=== PATIENT | female | born 1945 | race Caucasian/White ===

== ENCOUNTER 2021-02-02 18:06 | Emergency (ER) | payer MEDICARE, SELFPAY ==
--- NOTE | 2021-02-02 18:16 | ED.EYEPROB ---
HPI - Eye Problem General Chief complaint: Eye Problems Stated complaint: eye irritation Time Seen by Provider: 02/02/21 18:17 Source: patient and RN notes reviewed Mode of arrival: ambulatory Limitations: no limitations History of Present Illness HPI Narrative: 75-year-old female presents to the [facility] with complaints of left eye irritation for over 1 week. Noticed red conjunctive a. Denies any change in vision or blurry vision. No headaches. No drainage from her eye. Related Data Home Medications Medication Instructions Recorded Confirmed duloxetine 60 mg PO DAILY 02/02/21 02/02/21 hydrochlorothiazide 50 mg PO DAILY 02/02/21 02/02/21 levothyroxine 100 mcg PO DAILY 02/02/21 02/02/21 lisinopril 40 mg PO DAILY 02/02/21 02/02/21 simvastatin 20 mg PO HS 02/02/21 02/02/21 Allergies Allergy/AdvReac Type Severity Reaction Status Date / Time adhesive Allergy Mild Hives Verified 02/02/21 18:27 codeine Allergy Mild Hives Verified 02/02/21 18:27 Penicillins Allergy Mild Hives Verified 02/02/21 18:27 Review of Systems Review of Systems: All systems reviewed & are unremarkable except as noted in HPI and below Constitutional: Constitutional: Reports no additional constitutional complaints, Denies chills and Denies fever(s) Eyes: Eyes: Reports as per HPI, Denies change in vision and Denies photophobia ENT: Reports system reviewed and no additional complaints, except as documented Cardiovascular: Cardiovascular: Reports no additional cardiovascular complaints and Denies chest pain Respiratory: Respiratory: Reports no additional respiratory complaints, Denies cough and Denies dyspnea Musculoskeletal: Musculoskeletal: Reports no additional musculoskeletal complaints and Denies back pain Integumentary/Breasts: Skin/Breast: Reports system reviewed and no additional complaints, except as docu, Denies erythema and Denies rash Neurologic: Reports system reviewed and no additional complaints, except as documented Psychiatric: Psychiatric: Reports no additional psychiatric complaints Allergic/Immunologic: Allergic/Immunologic: Reports no additional allergic/immunologic complaints PMFSH Comments At the time of my signature, I reviewed and agree with the nursing past medical, surgical, social, and family history. There is no relevant family history pertinent to the patient complaint. Exam Const: General: healthy appearing, no acute distress and alert Nutritional Appearance: well nourished Orientation/consciousness: patient oriented x3 Limitations: no limitations HENMT: Head: normal to inspection Ears: hearing grossly normal bilaterally, external ears normal, TM's normal bilaterally and EAC's normal General nose exam: Normal external nose present and Normal nares present Face and sinus: normal facial exam and sinuses nontender Mouth: Yes Normal oral and palatal mucosa present and Yes lip normal Throat: posterior oropharynx normal, tonsils normal and uvula midline Eyes: Conjunctivae: conjunctival abnormality left conjunctival injection (Left) localized (Stye medial aspect) Pupils: Equal, round and reactive pupils present Neck: Neck: normal visual inspection, no lymphadenopathy and no meningeal signs Chest: Chest palpation & inspection: normal inspection of the chest Resp: Effort & Inspection: normal respiratory effort and no use of accessory muscles Auscultation: clear to auscultation bilaterally, no crackles, no rales, no rhonchi and no wheezes Cardio: Rate: regular rate Rhythm: regular rhythm : General: Yes no CVA tenderness Back/Spine/Pelvis: Back: no CVA tenderness Skin: General skin exam: normal color Rashes: no rashes Neuro: General: patient oriented x3, moves all extremities, no meningeal signs and no focal motor deficits Speech: normal speech Gait exam (Neuro): Normal gait present Extrem: General: normal to inspection and no pedal edema Psych: Appearance: grossly normal and well kempt Mental Status
[2021-02-02 18:17] VITALS: BP 127/75; PULSE 99; RESP 16; TEMP 36.1; O2SAT 96
== END 2021-02-02 18:33 | disposition home or self-care (01) ==
PROVIDERS: Emergency Provider Nurse Practitioner
DX: H00.016 Hordeolum externum left eye, unspecified eyelid (principal); E78.00 Pure hypercholesterolemia, unspecified; I10 Essential (primary) hypertension; J44.9 Chronic obstructive pulmonary disease, unspecified; K21.9 Gastro-esophageal reflux disease without esophagitis
CPT/HCPCS: 99203; G0463

== ENCOUNTER 2023-01-21 13:37 | Observation (INO) | payer OTHER, SELFPAY ==
--- NOTE | ~2023-01-21 | CT_ITS ---
EXAMINATION: CTA BRAIN/CAROTID DATE: 01/21/2023 16:12 INDICATION: Ataxia TECHNIQUE: Computed tomographic angiography (CTA) of the head and neck was performed with 100 mL Omni paque-350 intravenous contrast. Multiplanar reconstructions and maximum intensity projection 3D-recon structions of the carotid arteries and of the intracranial arteries were created by the technologist on a separate workstation. Precontrast CT of the head was also obtained. Automated exposure control and iterative reconstruction technique were employed.The dose-length product was 1647.57 mGy-cm. COMPARISON: CT dated 07/08/2013 and MRI dated 10/15/2007 FINDINGS: Carotid arteries: Nonhemodynamically significant atherosclerotic plaque along the aortic arch which is normal in calibe r with no dissection. There is small amount of atherosclerotic plaque with 0% stenosis both the right and left carotid bulbs relative to normal distal artery lumen diameter (NASCET criteria). Severe emp hysema. Severe cervical and upper thoracic spondylosis. Head: No significant change in small old lacunar infarcts at the bilateral basal ganglia and left odalys. No acute intracranial hemorrhage, acute infarction or abnormal extra axial fluid collection. There is mo derate scattered white matter hypoattenuation consistent with chronic small vessel ischemic disease. Symmetric prominence of the sulci consistent with mild age-appropriate diffuse cerebral volume loss. Ventricles are normal and symmetric. No mass/mass effect. No abnormally enhancing brain lesions on po stcontrast imaging. The orbits, paranasal sinuses and mastoid air cells are normal. Intracranial arteries Small amount of atherosclerotic plaque without hemodynamic significant stenosis at the bilateral vert ebral arteries and at the bilateral carotid siphons. There is no hemodynamically significant stenosis in the vertebral, basilar and internal carotid arteries. Vertebral arteries are codominant. There ar e no aneurysms identified. Both A1 and P1 segments are patent. There is a patent anterior communicat ing artery. Cerebral arterial arborization appears symmetric. IMPRESSION: 1. 0% stenosis of the right and left carotid bulbs relative to normal distal artery lumen diameter (N ASCET criteria). 2. No hemodynamic significant stenosis, thrombosis or aneurysm of the cerebral arteries. 3. Chronic old lacunar infarcts at the bilateral basal ganglia and left odalys. No acute intracranial p rocess or abnormally enhancing brain lesions. 4. Age-related changes including mild diffuse volume loss and moderate scattered white matter hypoatt enuation consistent with chronic small vessel ischemic disease. Reviewed, dictated and finalized at location A. IMPRESSION: 1. 0% stenosis of the right and left carotid bulbs relative to normal distal ar selam lumen diameter (NASCET criteria). 2. No hemodynamic significant stenosis, thrombosis or aneurysm of the cerebral arteries. 3. Chronic old lacunar infarcts at the bilateral basal ganglia and left odalys. N o acute intracranial process or abnormally enhancing brain lesions. 4. Age-related changes including mild diffuse volume loss and moderate scattere d white matter hypoattenuation consistent with chronic small vessel ischemic di sease.
--- NOTE | ~2023-01-21 | XR_ITS ---
XR chest 1V portable 01/21/2023 16:28 Indication: Generalized weakness Procedure: AP portable chest Comparison: 04/27/2008 Findings: Bilateral perihilar interstitial infiltrates. Heart size normal. No pleural effusion or pne umothorax. No acute osseous abnormality. Impression: 1: Bilateral perihilar interstitial infiltrates may represent pneumonia or edema. Reviewed, dictated and finalized at location L. Impression: 1: Bilateral perihilar interstitial infiltrates may represent pneumonia or artie a.
[2023-01-21 13:39] VITALS: BP 106/45; PULSE 95; RESP 18; TEMP 36.9; O2SAT 98
[2023-01-21 13:59] LABS: Basophils Percent Auto 0.6 % (0.2-1.2); Eosinophils Absolute Auto 0.1 K/mm3 (0-0.3); Eosinophils Percent Auto 0.8 % (0-4.4); Hematocrit 37.8 % (37.0-47.0); Hemoglobin 12.6 g/dL (12.0-15.0); Immature Granulocyte Absolute 0.04 K/mm3 (0.00-0.031); Immature Granulocyte Percent A 0.6 % (0-0.5); Lymphocytes Absolute Auto 1.23 K/mm3 (0.9-3.2); Lymphocytes Percent Auto 18.9 % (18.3-44.2); Mean Corpuscular HGB Conc 33.3 g/dl (32-36); Mean Corpuscular Hemoglobin 29.7 pg (26-34); Mean Corpuscular Volume 89.2 fl (80-100); Monocytes Absolute Auto 0.5 K/mm3 (0.1-0.6); Monocytes Percent Auto 6.9 % (2.6-8.5); Neutrophils Absolute Auto 4.7 K/mm3 (1.3-6.7); Neutrophils Percent Auto 72.2 % (45.5-73.1); Platelet Count Result 219 k/mm3 (150-375); Red Blood Count 4.24 M/mm3 (4.2-5.4); Red Cell Distribution Width 14.9 % (11.5-14.5); White Blood Count 6.5 K/mm3 (4.5-10.0)
[2023-01-21 14:12] LABS: Alanine Aminotransferase 39 U/L (6-35); Albumin Level 4.5 g/dL (3.5-5.1); Alkaline Phosphatase 82 U/L (38-126); Anion Gap 12 mmol/L (8-16); Aspartate Amino Transferase 69 U/L (14-36); Bilirubin,Total 1.2 mg/dL (0.2-1.3); Blood Urea Nitrogen 20 mg/dL (7-17); Calcium 8.6 mg/dL (8.4-10.2); Carbon Dioxide 26 mmol/L (22-30); Chloride 92 mmol/L (98-107); Estimated CRCL calculation 35 ml/min; Estimated Glomerular Filt Rate 44; Glucose 93 mg/dL (65-110); Potassium 3.1 mmol/L (3.4-5.0); Sodium 130 mmol/L (137-145)
[2023-01-21 14:57] LABS: Appearance Urine Cloudy (Clear); Bacteria Urine 4+ /hpf; Bilirubin Urine Negative (Negative); Blood Urine 1+ (Negative); Color Urine Dark Yellow (Yellow); Glucose Urine UA Negative (Negative); Ketones Urine Negative (Negative); Leukocyte Esterase Ur Negative LEU/UL (Negative); Nitrate Urine Negative (Negative); Non Pathogenic Casts 0-2; Protein Urine 1+ mg/dL (Negative); Specific Grav Ur 1.013 (1.001-1.035); Squamous Epithelial Cell Urine Occasional /hpf (Few); WBC Urine 0-5 /hpf
[2023-01-21 15:00] LABS: Add Urine Microscopic? YES
--- NOTE | 2023-01-21 15:43 | ECG_ITS ---
Measurements Intervals [place] Rate: 80 P: 52 CO: 178 QRS: -18 QRSD: 88 T: 41 QT: 398 QTc: 461 Interpretive Statements SINUS RHYTHM LOW QRS VOLTAGE IN PRECORDIAL LEADS [QRS DEFLECTION < 1.0 mV IN CHEST LEADS] MINIMAL VOLTAGE CRITERIA FOR LVH, CONSIDER NORMAL VARIANT [MEETS CRITERIA IN ONE OF: R(aVL), S(V1), R(V5), R(V5/V6)+S(V1)] INFERIOR MYOCARDIAL INFARCTION , PROBABLY OLD [40+ ms Q WAVE AND/OR ST/T ABNORMALITY IN II/aVF] NO PREVIOUS ECG AVAILABLE FOR COMPARISON Electronically Signed On 01-21-2023 16:26:48 CDT by Lacey Roe M.D.
[2023-01-21] MEDS: SODIUM CHLORIDE 0.9% IV 1,000 ML 999 ML IV CONT (15:59)
[2023-01-21] MEDS: ONDANSETRON INJ 4 MG/2 ML VIAL IV PUSH (16:00)
[2023-01-21] MEDS: ACETAMINOPHEN 325 MG TABLET 650 MG PO (16:00)
--- NOTE | 2023-01-21 16:01 | PC.NURSE ---
Pt to CT scan via stretcher at this time. Fluids infusing.
[2023-01-21 16:19] LABS: Lipase 55 U/L (23-300); Magnesium 2.2 mg/dL (1.6-2.3); Phosphorus 3.8 mg/dL (2.5-4.5)
[2023-01-21 16:20] LABS: Creatine Kinase 158 U/L (30-135)
[2023-01-21 16:30] LABS: Troponin I < 0.012 ng/mL (0.000-0.034)
--- NOTE | 2023-01-21 16:49 | ED.BACK ---
HPI - Back Pain/Injury General Chief Complaint: Back Pain/Injury <Linh Beatty PA-C - Last Filed: 01/21/23 18:37> Stated Complaint: kidney infection sx <Linh Beatty PA-C - Last Filed: 01/21/23 18:37> Time Seen by Provider: 01/21/23 14:58 <Linh Beatty PA-C - Last Filed: 01/21/23 18:37> History of Present Illness HPI Narrative: 77-year-old female with a history of COPD, hysterectomy, thyroidectomy, back surgeries in 1965 in 2019 reports for evaluation for generalized weakness, body aches, headaches, muscle spasms, nausea and ataxia x1 week. Patient states starting 1 week ago, symptoms began however over the weekend, they progressively worsened and she did not get out of bed for 2 days. Patient reports having a 102 fever 3 days ago with associated hot and cold flashes. She does endorse a persistent nonproductive cough secondary to her COPD, however states it has worsened since December. Patient also endorses a dyspnea that is unchanged from her baseline. Denies chest pain. Patient is complaining of a tension type headache over her temples, denies vision changes, focal numbness or weakness. She really denies dysuria, urinary frequency, however she does report urinary urgency at baseline and states that recently her urine has looked darker than normal. She reports back pain that is unchanged from her baseline. Patient reports she has felt off balance recently. States if she were to sit down on the toilet, and lean forward, she would fall off the toilet. Reports she has to hold onto the wall while ambulating which is abnormal for her and she is unable to ambulate without holding onto a wall. Denies abdominal pain, chest pain, diarrhea, vomiting, lower extremity edema, history of CHF. <Linh Beatty PA-C - Last Filed: 01/21/23 18:37> Related Data Home Medications: Home Medications Medication Instructions Recorded Confirmed duloxetine 60 mg capsule,delayed 60 mg PO DAILY 02/02/21 01/21/23 release hydrochlorothiazide 50 mg tablet 50 mg PO DAILY 02/02/21 01/21/23 levothyroxine 100 mcg tablet 112 mcg PO DAILY 07/02/21 06/20/23 lisinopril 40 mg tablet 40 mg PO DAILY 02/02/21 01/21/23 simvastatin 20 mg tablet 20 mg PO HS 02/02/21 01/21/23 buspirone 15 mg tablet 15 mg PO QAM 01/21/23 01/21/23 colesevelam 625 mg tablet 312.5 mg PO BID 01/21/23 01/21/23 omeprazole 40 mg capsule,delayed 40 mg PO DAILY 01/21/23 01/21/23 release <Linh Beatty PA-C - Last Filed: 01/21/23 18:37> Allergies/Adverse Reactions: Allergies Allergy/AdvReac Type Severity Reaction Status Date / Time adhesive Allergy Mild Hives Verified 01/21/23 14:55 codeine Allergy Mild Hives Verified 01/21/23 14:55 Penicillins Allergy Mild Hives Verified 02/02/21 18:27 <ARNULFO Novak Last Filed: 01/21/23 18:37> Review of Systems Review of Systems: CONSTITUTIONAL: See HPI EYES: Denies visual changes, redness, or discharge. ENT: Denies rhinorrhea, congestion, sore throat, or otalgia. CARDIOVASCULAR: Denies chest pain, palpitations, or edema. RESPIRATORY: See HPI GASTROINTESTINAL: Denies abdominal pain, vomiting, or diarrhea. GENITOURINARY: See HPI SKIN: Denies rash or itching. MUSCULOSKELETAL: See HPI NEUROLOGIC: See HPI PSYCHIATRIC: Denies anxiety or depression. <ARNULFO Novak Last Filed: 01/21/23 18:37> [facility] Past Medical History Medical History: Medical History (Updated 01/22/23 @ 01:51 by Vandana Bills NP) CVA (cerebral vascular accident) Depression ect shock therapy Hypertension Hypothyroidism JAYANT on CPAP <ARNULFO Novak Last Filed: 01/21/23 18:37> Surgical History Surgical History: Surgical History (Updated 01/22/23 @ 01:26 by Vandana Bills NP) H/O cataract extraction H/O section H/O thyroidectomy H/O: hysterectomy Hx of cholecystectomy <ARNULFO Novak Last Filed: 01/21/23 18:37> Family History Family Histor
[2023-01-21] MEDS: POTASSIUM CHLORIDE 20 MEQ PACKET (FOR LIQUID) 40 MEQ PO (16:51)
[2023-01-21 16:53] VITALS: BP 108/50; PULSE 80; RESP 17; O2SAT 100
[2023-01-21 16:57] LABS: Influenza A QL RT-PCR Negative (Negative); Influenza B QL RT-PCR Negative (Negative); SARS-CoV-2 RNA PCR Negative (Negative)
[2023-01-21 17:43] LABS: NT Pro B Type Natriuretic Pept 243 pg/mL (19.9-100)
[2023-01-21 17:44] VITALS: BP 115/52; PULSE 78; RESP 16; TEMP 36.8; O2SAT 91
[2023-01-21] MEDS: AZITHROMYCIN 500 MG/NS 250 ML 500 MG/250 ML BAG 250 MG IVPB (18:50)
--- NOTE | 2023-01-21 20:52 | ADMGEN ---
This patient, Ileana Panda, was admitted to Medical Room 347-. Patient/family oriented to hospital policies and general routines including ID bracelet, bed and alarms, visiting hours, pain management, procedures, bathroom and other care routines, personal items, smoking policy, room service/diet, and visiting hours. Information on how to activate the Rapid Response Team has been discussed. Patient/Family are encouraged to report perceived risks to care and to ask questions if they do not understand what they are told or what they should do.
[2023-01-21 21:28] VITALS: BP 107/48; PULSE 76; RESP 18; TEMP 37.2; O2SAT 100
[2023-01-21 21:30] VITALS: BMI 29.0
--- NOTE | 2023-01-21 21:46 | PM.IMHP ---
H&P: HPI History of Present Illness Date/Time: 01/21/23 21:46 Chief Complaint: Back pain Narrative: This is a 77-year-old female patient who has a history of hypertension and depression. The patient has had chronic back pain with back surgeries and 1966 and again in 2019. The patient stated that she has had weakness for the last week with generalized weakness body aches headaches and muscle spasms. The patient has been feeling worse over the last 2 days and has been bed-bound. The patient reported that she had a fever of 102 for 3 days with hot and cold flashes. The patient has been complaining of a headache over her temp oral area today. The patient has chronic urinary urgency at baseline. However the patient felt that her urine was darker than normal. The patient was feeling off balance but not dizzy. Her sodium is 130. Potassium 3.1 chloride 92. Creatinine 1.2. Estimated GFR is 44. No recent labs for comparison. Her total CK was 158. AST 69 ALT 39. BNP 243. The patient was positive for UTI. She was negative for influenza A/B and COVID. The patient was given Zofran, Tylenol, IV fluids, Rocephin and azithromycin. Head and neck CTA was read as follows0% stenosis of the right and left carotid bulbs relative to normal distal artery lumen diameter (NASCET criteria). 2. No hemodynamic significant stenosis, thrombosis or aneurysm of the cerebral arteries. 3. Chronic old lacunar infarcts at the bilateral basal ganglia and left odalys. No acute intracranial process or abnormally enhancing brain lesions. 4. Age-related changes including mild diffuse volume loss and moderate scattered white matter hypoattenuation consistent with chronic small vessel ischemic disease. Chest x-ray was read as bilateral perihilar interstitial infiltrates may represent pneumonia or edema. The patient is being admitted to observation status on the date of service of 01/21/2023. Review of Systems Review of Systems: All systems reviewed & are unremarkable except as noted in HPI and below Constitutional: Constitutional: Reports as per HPI and Reports no additional constitutional complaints Eyes: Eyes: Reports as per HPI and Reports no additional eye complaints ENT: Reports system reviewed and no additional complaints, except as documented and Reports Normal hearing present Cardiovascular: Cardiovascular: Reports no additional cardiovascular complaints Respiratory: Respiratory: Reports no additional respiratory complaints and Reports no additional respiratory complaints Gastrointestinal: Gastrointestinal: Reports as per HPI and Reports no additional gastrointestinal complaints Musculoskeletal: Musculoskeletal: Reports no additional musculoskeletal complaints Integumentary/Breasts: Skin/Breast: Reports system reviewed and no additional complaints, except as docu and Reports as per HPI Neurologic: Reports system reviewed and no additional complaints, except as documented, Reports as per HPI and Reports Normal hearing present Psychiatric: Psychiatric: Reports no additional psychiatric complaints and Reports as per HPI Endocrine: Endocrine: Reports no additional endocrine complaints Hematologic/Lymphatic: Hematologic/Lymphatic: Reports no additional hematologic/lymphatic complaints Allergic/Immunologic: Allergic/Immunologic: Reports no additional allergic/immunologic complaints [facility] Past Medical History Medical History (Updated 01/22/23 @ 01:51 by Vandana Bills NP) CVA (cerebral vascular accident) Depression ect shock therapy Hypertension Hypothyroidism JAYANT on CPAP Surgical History Surgical History (Updated 01/22/23 @ 01:26 by Vandana Bills NP) H/O cataract extraction H/O section H/O thyroidectomy H/O: hysterectomy Hx of cholecystectomy Family History Family History Father Acute myocardial infarction Asthma Hypertension Sibling Acute myocardial infarction Cerebro
[2023-01-21] MEDS: COLESEVELAM 625 MG TABLET 312.5 MG PO (23:54)
[2023-01-21] MEDS: SIMVASTATIN 20 MG TABLET PO (23:54)
[2023-01-22] MEDS: LEVOTHYROXINE SODIUM 112 MCG TABLET PO (05:07)
[2023-01-22 05:14] VITALS: BP 110/55; PULSE 78; RESP 18; TEMP 36.9; O2SAT 94
[2023-01-22 06:02] LABS: Basophils Percent Auto 0.9 % (0.2-1.2); Eosinophils Percent Auto 0.9 % (0-4.4); Hematocrit 31.7 % (37.0-47.0); Hemoglobin 10.5 g/dL (12.0-15.0); Immature Granulocyte Absolute 0.02 K/mm3 (0.00-0.031); Immature Granulocyte Percent A 0.5 % (0-0.5); Lymphocytes Absolute Auto 1.06 K/mm3 (0.9-3.2); Mean Corpuscular HGB Conc 33.1 g/dl (32-36); Mean Corpuscular Hemoglobin 29.5 pg (26-34); Mean Platelet Volume 9.9 fl (7.4-10.4); Monocytes Absolute Auto 0.4 K/mm3 (0.1-0.6); Monocytes Percent Auto 9.5 % (2.6-8.5); Neutrophils Absolute Auto 2.8 K/mm3 (1.3-6.7); Neutrophils Percent Auto 64.2 % (45.5-73.1); Platelet Count Result 183 k/mm3 (150-375); Red Blood Count 3.56 M/mm3 (4.2-5.4); Red Cell Distribution Width 14.8 % (11.5-14.5); White Blood Count 4.4 K/mm3 (4.5-10.0)
[2023-01-22 06:11] LABS: Lactic Acid Reflex 0.8 mmol/L (0.7-2.0)
[2023-01-22 06:12] LABS: Alanine Aminotransferase 32 U/L (6-35); Albumin Level 3.3 g/dL (3.5-5.1); Alkaline Phosphatase 70 U/L (38-126); Anion Gap 7 mmol/L (8-16); Aspartate Amino Transferase 50 U/L (14-36); Bilirubin,Total 0.7 mg/dL (0.2-1.3); Blood Urea Nitrogen 15 mg/dL (7-17); Calcium 7.9 mg/dL (8.4-10.2); Carbon Dioxide 27 mmol/L (22-30); Chloride 98 mmol/L (98-107); Estimated CRCL calculation 40 ml/min; Estimated Glomerular Filt Rate 54; Glucose 88 mg/dL (65-110); Potassium 3.4 mmol/L (3.4-5.0); Sodium 132 mmol/L (137-145)
[2023-01-22 06:32] LABS: Anisocytosis 1+ (NORMAL); Atypical Lymphocytes Present; Platelet Estimate Adequate (Adequate); Schistocytes None Seen (NORMAL)
[2023-01-22] MEDS: lisinopriL 20 MG TABLET 40 MG PO (09:19)
[2023-01-22] MEDS: DULoxetine HCL 60 MG CAPSULE.DR PO (09:20)
[2023-01-22] MEDS: PANTOPRAZOLE 40 MG TABLET PO (09:20)
[2023-01-22] MEDS: COLESEVELAM 625 MG TABLET 312.5 MG PO ×2 (09:20→17:24)
[2023-01-22] MEDS: busPIRone HCL 5 MG TABLET 15 MG PO (09:20)
--- NOTE | 2023-01-22 11:51 | PM.IMPN ---
Progress Note: A&P Assessment and Plan (1) Pneumonia: Qualifiers: Laterality: bilateral Lung location: unspecified part of lung Pneumonia type: due to unspecified organism Qualified Code(s): J18.9 - Pneumonia, unspecified organism Code(s): J18.9 - Pneumonia, unspecified organism Status: Acute Assessment and Plan: Patient presents with myalgias, achiness and back pain. Influenza and COVID negative. UA noted but did not prompt a culture. BCx pending. UCx collected later. CXR showing bilateral perihilar interstitial infiltrates. Sputum culture ordered. Check urine Ag. Albuterol available prn. Continue with azithromycin and Rocephin per antibiotic stewardship. Follow up on culture results. Broaden differential if she delgadillo not improve as expected. (2) Hypertension: Code(s): I10 - Essential (primary) hypertension Status: Acute Assessment and Plan: Patient's blood pressure was reviewed on 01/22 Blood pressure remains well controlled. Will continue to monitor. Continue to hold hydrochlorothiazide (3) UTI (urinary tract infection): Code(s): N39.0 - Urinary tract infection, site not specified Status: Acute Assessment and Plan: UA noted. The patient was started on Rocephin. Urine culture was collected late. Blood and urine cultures are pending. (4) Generalized weakness: Code(s): R53.1 - Weakness Status: Acute Assessment and Plan: Patient was achy with myalgias. TCK 158. Up to the chair. Start PT/OT. (5) JAYANT on CPAP: Code(s): G47.33 - Obstructive sleep apnea (adult) (pediatric) Status: Acute Assessment and Plan: Stable. Continue with CPAP/BiPAP (6) Depression: Code(s): F32.A - Depression, unspecified Status: Acute Assessment and Plan: Mood stable. Continue with duloxetine (7) Hypothyroidism: Code(s): E03.9 - Hypothyroidism, unspecified Status: Acute Assessment and Plan: TSH normal. Continue with levothyroxine Subjective Date/time seen: 01/22/23 11:51 Interval history: 77yo female with HTN and depression here for weakness, fever and back pain. Assuming care. Chart reviewed. back pain is better. She states the pain was higher than her hardware in her low back. Eating now without nausea. Still feels achy. Minimal cough Exam Narrative: AF 98.4 110/55 78 18 94% ra Gen - NARD sitting up in chair Chest - CTA bilaterally, nml RR CV - RRR S1/S2 Abd - Soft, NT/ND, Positive BS Ext - No pedal edema Psych - Nml mood and affect Skin - Warm and dry Objective Data Vital Signs Vital Signs: Vital Signs - 24 hr 01/21/23 13:39 01/21/23 16:53 01/21/23 17:44 Temperature 98.5 F 98.2 F Pulse Rate 95 80 78 Respiratory Rate 18 17 16 Blood Pressure 106/45 L 108/50 L 115/52 L Pulse Oximetry 98 100 91 Oxygen Delivery Room Air 01/21/23 21:06 01/21/23 21:28 01/22/23 05:14 Temperature 99 F 98.4 F Pulse Rate 76 78 Respiratory Rate 18 18 Blood Pressure 107/48 L 110/55 L Pulse Oximetry 100 94 Oxygen Delivery Room Air 01/22/23 09:15 Temperature Pulse Rate Respiratory Rate Blood Pressure Pulse Oximetry Oxygen Delivery Room Air Intake/Output Intake/Output: Intake & Output 01/19/23 01/20/23 01/21/23 01/22/23 23:59 23:59 23:59 23:59 Intake Total 1300 420 Balance 1300 420 Meds/Results Medications: Active Medications Generic Name Dose Route Start Last Admin Trade Name Freq PRN Reason Stop Dose Admin Acetaminophen 650 mg 01/21/23 17:35 Acetaminophen 325 Mg Tablet PO Q4H PRN Mild Pain (1-3) or Fever Albuterol 2 puff 01/22/23 01:32 Albuterol Sulfate (*Sp) Aerosol 1 Puff INHALATION Q6HRT PRN Shortness Of Breath Buspirone HCl 15 mg 01/22/23 09:00 01/22/23 09:20 Buspirone Hcl 5 Mg Tablet PO 15 mg QAM JIHAN Administration Colesevelam HCl 312.5 mg 01/21/23 23:05
--- NOTE | 2023-01-22 13:36 | PCCCNOTE ---
On 01/22/23, the student, [Liz Manning], provided care and completed [facility] documentation on this patient. I have reviewed the student's documentation and agree with the findings.
[2023-01-22 13:59] VITALS: BP 106/64; PULSE 71; RESP 16; TEMP 36.1; O2SAT 97
[2023-01-22] MEDS: ACETAMINOPHEN 325 MG TABLET 650 MG PO (17:23)
[2023-01-22] MEDS: AZITHROMYCIN 500 MG/NS 250 ML 500 MG/250 ML BAG 250 MG IVPB (19:26)
[2023-01-22] MEDS: SIMVASTATIN 20 MG TABLET PO (20:35)
[2023-01-22 21:17] VITALS: BP 106/46; PULSE 71; RESP 18; TEMP 36.7; O2SAT 95
[2023-01-22 22:50] VITALS: PULSE 70; O2SAT 95
[2023-01-23 04:47] VITALS: BP 109/49; PULSE 74; RESP 20; TEMP 36.4; O2SAT 94
[2023-01-23] MEDS: LEVOTHYROXINE SODIUM 112 MCG TABLET PO (05:29)
[2023-01-23 06:01] LABS: Basophils Percent Auto 0.7 % (0.2-1.2); Eosinophils Absolute Auto 0.1 K/mm3 (0-0.3); Eosinophils Percent Auto 2.4 % (0-4.4); Hematocrit 31.3 % (37.0-47.0); Hemoglobin 10.3 g/dL (12.0-15.0); Immature Granulocyte Absolute 0.03 K/mm3 (0.00-0.031); Immature Granulocyte Percent A 0.7 % (0-0.5); Lymphocytes Absolute Auto 1.63 K/mm3 (0.9-3.2); Mean Corpuscular HGB Conc 32.9 g/dl (32-36); Mean Corpuscular Hemoglobin 29.3 pg (26-34); Mean Corpuscular Volume 89.2 fl (80-100); Mean Platelet Volume 9.9 fl (7.4-10.4); Monocytes Absolute Auto 0.4 K/mm3 (0.1-0.6); Monocytes Percent Auto 9.6 % (2.6-8.5); Neutrophils Percent Auto 47.6 % (45.5-73.1); Platelet Count Result 178 k/mm3 (150-375); Red Blood Count 3.51 M/mm3 (4.2-5.4); Red Cell Distribution Width 14.8 % (11.5-14.5); White Blood Count 4.2 K/mm3 (4.5-10.0)
[2023-01-23 06:16] LABS: Alanine Aminotransferase 34 U/L (6-35); Albumin Level 3.3 g/dL (3.5-5.1); Alkaline Phosphatase 67 U/L (38-126); Anion Gap 7 mmol/L (8-16); Aspartate Amino Transferase 57 U/L (14-36); Bilirubin,Total 0.4 mg/dL (0.2-1.3); Blood Urea Nitrogen 13 mg/dL (7-17); Calcium 8.2 mg/dL (8.4-10.2); Carbon Dioxide 27 mmol/L (22-30); Chloride 103 mmol/L (98-107); Creatine Kinase 67 U/L (30-135); Estimated CRCL calculation 44 ml/min; Estimated Glomerular Filt Rate > 60; Glucose 98 mg/dL (65-110); Magnesium 1.9 mg/dL (1.6-2.3); Potassium 3.6 mmol/L (3.4-5.0); Sodium 137 mmol/L (137-145)
[2023-01-23] MEDS: lisinopriL 20 MG TABLET 40 MG PO (08:58)
[2023-01-23] MEDS: COLESEVELAM 625 MG TABLET 312.5 MG PO (08:58)
[2023-01-23] MEDS: busPIRone HCL 5 MG TABLET 15 MG PO (08:58)
[2023-01-23] MEDS: DULoxetine HCL 60 MG CAPSULE.DR PO (08:58)
[2023-01-23] MEDS: PANTOPRAZOLE 40 MG TABLET PO (08:58)
--- NOTE | 2023-01-23 12:47 | PM.DS ---
DS: Admitting Diagnosis Discharge Date 01/23/23 Admitting Diagnosis Weakness, fever and back pain DS: Discharge Diagnosis Discharge Diagnosis (1) Pneumonia: Qualifiers: Laterality: bilateral Lung location: unspecified part of lung Pneumonia type: due to unspecified organism Qualified Code(s): J18.9 - Pneumonia, unspecified organism Code(s): J18.9 - Pneumonia, unspecified organism Status: Acute (2) Hypertension: Code(s): I10 - Essential (primary) hypertension Status: Acute (3) UTI (urinary tract infection): Code(s): N39.0 - Urinary tract infection, site not specified Status: Acute (4) Generalized weakness: Code(s): R53.1 - Weakness Status: Acute (5) JAYANT on CPAP: Code(s): G47.33 - Obstructive sleep apnea (adult) (pediatric) Status: Acute (6) Depression: Code(s): F32.A - Depression, unspecified Status: Acute (7) Hypothyroidism: Code(s): E03.9 - Hypothyroidism, unspecified Status: Acute DS: Summary Hospital Course Reason for hospitalization: 77yo female with HTN and depression here for weakness, fever and back pain. Please see H&P for details. Hospital Course: Patient presented with myalgias, achiness and back pain. Influenza and COVID negative. UA noted but did not prompt a culture. BCx NGTD. UCx collected later and is pending. CXR showing bilateral perihilar interstitial infiltrates. Sputum culture ordered but not collected. Urine Ag pending. Albuterol was available prn. She was started on azithromycin and Rocephin per antibiotic stewardship. She has HTN and her blood pressure remained well controlled.?We held hydrochlorothiazide. Patient was achy with myalgias. TCK 158. She worked with PT/OT. Dhe refuses home health but is agreeable for outpatient therapy. She lives with her son. She had clinical improvement and was able to be discharged home on 01/23/23. Status at Discharge Cognitive/behavioral status at discharge: stable Time Spent with Patient Time attestation: Total time spent providing and/or coordinating discharge services: 34 minutes Time spent: Greater than 30 minutes Exam Narrative: AF 97.5 109/49 74 20 94% ra Gen - NARD Chest - few bibasilar crackles, nml RR CV - RRR S1/S2 Abd - Soft, NT/ND, Positive BS Ext - No pedal edema Psych - Nml mood and affect Skin - Warm and dry DS: Data Data Completed and Pending Labs on day of discharge: Labs from last 24 hours 01/23/23 01/22/23 05:50 15:50 WBC 4.2 L RBC 3.51 L Hgb 10.3 L Hct 31.3 L MCV 89.2 MCH 29.3 MCHC 32.9 RDW 14.8 H Plt Count 178 MPV 9.9 Immature Gran % (Auto) 0.7 H Neut % (Auto) 47.6 Lymph % (Auto) 39.0 [place] % (Auto) 9.6 H Eos % (Auto) 2.4 Baso % (Auto) 0.7 Lymph # (Auto) 1.63 [place] # (Auto) 0.4 Eos # (Auto) 0.1 Baso # (Auto) 0.0 Abs Immat Gran (auto) 0.03 Absolute Neuts (auto) 2.0 Absolute Nucleated RBC 0.0 Nucleated RBC % 0.0 Sodium 137 Potassium 3.6 Chloride 103 Carbon Dioxide 27 Anion Gap 7 L BUN 13 Creatinine 0.90 Estim Creat Clear Calc 44 Estimated GFR > 60 Glucose 98 Calcium 8.2 L Magnesium 1.9 Total Bilirubin 0.4 AST 57 H ALT 34 Alkaline Phosphatase 67 Total Creatine Kinase 67 Total Protein 6.0 L Albumin 3.3 L Ur L.pneumophila Ag Pending Urine Pneumococcal Ag Pending Preliminary micro results at discharge 01/22/23 02:16 Blood Culture - Preliminary Blood 01/22/23 02:16 Blood Culture - Preliminary Blood Discharge Plan Discharge Attending physician on discharge: Frederick Hall Consulting providers: Linh Beatty Discharging Clinician: Frederick Hall Anticipated Discharge Date/Time: 01/23/23 12:52 Patient Disposition: Home, Self-Care Activity: as tolerated Diet: heart healthy Discharge Instructions: please take these discharge orders to outpa
[2023-01-23] MEDS: ACETAMINOPHEN 325 MG TABLET 650 MG PO (13:25)
[2023-01-25 02:04] LABS: Pneumococcal Antigen Urine Not Detected (Not Detected)
[2023-01-25 10:07] LABS: Legionella pneumophila Ag Ur Not Detected (Not Detected)
--- NOTE | 2023-01-28 10:24 | PC.NURSE ---
Urine pneumococcal and legionella are both not detected. Blood and urine cx are both negative. Dr. Rafael lino.
== END 2023-01-23 14:03 | disposition home or self-care (01) ==
LOC: ANHED 17:35 → ANH3MED 01-22 09:20
PROVIDERS: Emergency Medicine; Nurse Practitioner; Admitting Provider Chiropractor; Emergency Provider Physician Assistant; PCP Family Medicine Sports Medicine; Visit Provider Internal Medicine
DX: J18.9 Pneumonia, unspecified organism (principal); I10 Essential (primary) hypertension; N39.0 Urinary tract infection, site not specified; R53.1 Weakness; G47.33 Obstructive sleep apnea (adult) (pediatric); F32.A Depression, unspecified; E03.9 Hypothyroidism, unspecified; E87.1 Hypo-osmolality and hyponatremia; E87.6 Hypokalemia; M79.10 Myalgia, unspecified site; Z20.822 Contact with and (suspected) exposure to COVID-19; R51.9 Headache, unspecified; R11.0 Nausea; R27.0 Ataxia, unspecified; R94.31 Abnormal electrocardiogram [ECG] [EKG]; R27.8 Other lack of coordination; R50.9 Fever, unspecified; J44.9 Chronic obstructive pulmonary disease, unspecified; R91.8 Other nonspecific abnormal finding of lung field; Z90.710 Acquired absence of both cervix and uterus; Z98.890 Other specified postprocedural states; Z99.89 Dependence on other enabling machines and devices; R06.00 Dyspnea, unspecified; R39.15 Urgency of urination; Z86.73 Personal history of transient ischemic attack (TIA), and cerebral infarction without residual deficits; Z87.891 Personal history of nicotine dependence; Z79.899 Other long term (current) drug therapy
CPT/HCPCS: 36415; 70496; 70498; 71045; 80053; 81001; 82550; 83605; 83690; 83735; 83880; 84100; 84443; 84484; 85025; 87040; 87086; 87449; 87636; 87899; 93005; 96361; 96365; 96366; 96367; 96375; 96376; 97161; 97165; 99285; A9270; G0378; J0456; J0696; J2405; J7030; Q9967

== ENCOUNTER 2024-03-01 09:49 | Outpatient (CLI) | payer OTHER, SELFPAY ==
--- NOTE | ~2024-03-01 | XR_ITS ---
XR abdomen/kub 1V Ordering provider: Danyell Hernandez, DRILLING INSPECTOR History: . bilateral renal stones . Comparison: None. FINDINGS: BOWEL: Nonobstructive bowel gas pattern. ORGANOMEGALY: None. SIGNIFICANT PATHOLOGIC CALCIFICATIONS: None. OTHER: Postoperative changes in the spine with degenerative changes. Pubic symphysitis. Bilateral hip osteoarthritic changes. No free air is seen under the diaphragm. IMPRESSION: NO ACUTE ABDOMINAL FINDINGS. Reviewed, dictated and finalized at location A.
--- NOTE | ~2024-03-01 | CT_ITS ---
Non-contrast CT scan of the Abdomen and Pelvis Clinical indication: Renal stones Technique: 2.5 mm axial scans were obtained through the abdomen and pelvis without intravenous or or al contrast. Dose reduction technique was used on this scan by utilizing automated exposure control a nd iterative reconstruction technique. The dose-length product (DLP) was 752.65 mGy-cm. Findings: Images through the lung bases reveal moderate emphysema. There is no evidence of renal or ureteral calculi. The kidneys and the ureters are nondilated. The liver, spleen, pancreas, and left adrenal gland appear normal. Gallbladder absent. 1.5 cm right a drenal nodule present. There are atherosclerotic calcifications of the aorta. . There is no evidence of bowel obstruction. Images through the pelvis were performed. There is no evidence of ascites or lymphadenopathy. Urinary bladder unremarkable. No pelvic mass seen. Impression: Renal, ureteral, or bladder stone seen. No hydronephrosis. 1.5 cm right adrenal nodule, strictly speaking indeterminate, though likely adenoma. Reviewed, dictated and finalized at [facility]. Impression: Renal, ureteral, or bladder stone seen. No hydronephrosis. 1.5 cm right adrenal nodule, strictly speaking indeterminate, though likely jaswinder noma.
== END 2024-03-01 09:50 ==
PROVIDERS: PCP Family Medicine Sports Medicine; Visit Provider Nurse Practitioner Family
DX: N20.0 Calculus of kidney (principal); D35.01 Benign neoplasm of right adrenal gland
CPT/HCPCS: 74018; 74176

== ENCOUNTER 2024-07-31 11:51 | Emergency (ER) | payer OTHER, SELFPAY ==
--- NOTE | ~2024-07-31 | XR_ITS ---
XR chest 1V portable Ordering provider: Kyaw Sorensen PA-C History: 79 years Female with . chest pain . Comparison: January 21, 2023 FINDINGS: MEDIASTINUM: The cardiac silhouette is not enlarged. Congestive new. LUNGS: No effusions or pneumothorax. Bilateral interstitial thickening. OTHER: No free air under the diaphragm. Degenerative changes of the spine. IMPRESSION: Bilateral interstitial changes which may indicate fibrotic changes. Superimposed pneumonitis is not e xcluded. Reviewed, dictated and finalized at location A. UETTE TEACHER IMPRESSION: Bilateral interstitial changes which may indicate fibrotic changes. Superimpose d pneumonitis is not excluded.
[2024-07-31 12:29] VITALS: BP 146/65; PULSE 93; RESP 18; TEMP 36.6; O2SAT 98
[2024-07-31 14:55] VITALS: BP 159/75; PULSE 77; PULSE 86; RESP 20; TEMP 36.3; O2SAT 98
--- NOTE | 2024-07-31 15:34 | ED.SOB ---
HPI - SOB/Dyspnea General Chief Complaint: Shortness of Breath/Dyspnea Stated Complaint: dont feel good. Time Seen by Provider: 07/31/24 14:55 Source: patient Mode of arrival: ambulatory Limitations: no limitations History of Present Illness HPI Narrative: This is a 79-year-old female with PMH of COPD, CVA, HTN who presents to the ED for chief complaint of shortness of breath increasing over the past 2 weeks. Also reports upper abdominal pain/lower chest pain under niece the breasts bilaterally. Patient states the pain comes and goes at random. Does not radiate. States it only lasts for a few minutes. The pain is not associated with exertion. Described more of the discomfort and may be related to the cough. Patient states that she is becoming more winded when getting up and walking, for example getting very short of breath after walking across the room which is new over the past couple of weeks. States that she has been taking her daily inhaler and using albuterol rescue inhaler as needed. She does not wear any oxygen. Endorses cough but has not really been productive. Reports hot flashes but no recorded fevers. Denies chills, nausea, vomiting, diarrhea, numbness, weakness, syncope. Related Data Home Medications ?Medication ?Instructions ?Recorded ?Confirmed ?Last Taken ?Type duloxetine 60 mg capsule,delayed 60 mg PO DAILY 02/02/21 01/21/23 Unknown History release hydrochlorothiazide 50 mg tablet 50 mg PO DAILY 02/02/21 01/21/23 Unknown History levothyroxine 100 mcg tablet 112 mcg PO DAILY 02/02/21 01/21/23 Unknown History lisinopril 40 mg tablet 40 mg PO DAILY 02/02/21 01/21/23 Unknown History simvastatin 20 mg tablet 20 mg PO HS 02/02/21 01/21/23 Unknown History buspirone 15 mg tablet 15 mg PO QAM 01/21/23 01/21/23 Unknown History colesevelam 625 mg tablet 312.5 mg PO BID 01/21/23 01/21/23 Unknown History omeprazole 40 mg capsule,delayed 40 mg PO DAILY 01/21/23 01/21/23 Unknown History release Allergies Allergy/AdvReac Type Severity Reaction Status Date / Time adhesive Allergy Mild Hives Verified 01/21/23 14:55 codeine Allergy Mild Hives Verified 01/21/23 14:55 vancomycin Allergy Redness of Verified 07/31/24 15:07 Skin Review of Systems Review of Systems: All systems as dictated in [facility] Past Medical History Medical History (Updated 07/31/24 @ 18:39 by Kyaw Sorensen PA-C) Hypothyroidism JAYANT on CPAP Depression ect shock therapy CVA (cerebral vascular accident) Hypertension Surgical History Surgical History (Updated 01/22/23 @ 01:26 by Vandana Bills NP) H/O: hysterectomy H/O cataract extraction H/O thyroidectomy Hx of cholecystectomy H/O section Family History Family History Father Acute myocardial infarction Asthma Hypertension Sibling Acute myocardial infarction Cerebrovascular accident Chronic obstructive pulmonary disease Hypertension Mother Cerebrovascular accident Congestive heart failure Hypertension Daughter Hypertension Son Hypertension Social History Social History (Updated 01/22/23 @ 01:31 by Vandana Bills NP) Social History: The patient is . 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 She had 5 children but 1 of her twins in vitro. The patient is a former smoker. She denies any alcohol marijuana or illicit drugs. Code status full code Smoking status: Former smoker Alcohol intake: never Substance use: never Lack of Transportation: No Lack of Food: Never True Current Housing: I Have Housing Concerned About Future Housing: No Difficulty Paying Gas/Electric Bills: No Difficulty Paying for Meds: No Currently Unemployed: No Education: High School Diploma/GED Difficulty w/ Childcare or Family Care: No Spiritual care concerns: No Exam Narrative: GENERAL: Well-appearing, well-nourished, and in no acute distress. HEAD: Normocephalic, atraumatic. EYES: PERRLA and EOMI. ENT: Nares clear, no rhinorrhea or epistaxis. Mucous membranes moist. Oropharynx without tonsillar hypertrophy exudate or other lesions. NECK: Supple. No adenopathy or masses. CHEST: No respiratory distress. Clear to auscultation. No wheezes rales or rhonchi HEART: Regular rate and rhythm. No murmur heard. Normal peripheral pulses. ABDOMEN: Soft, nontender, nondistended, normal active bowel sounds. MSK: Normal range of motion. No edema. SKIN: Warm, dry, no rash. NEURO: Alert and oriented x4. No focal deficits. PSYCH: Normal mood and affect. Course Vital Signs Vital signs: Vital Signs Temperature 97.9 F 07/31/24 12:29 Pulse Rate 93 07/31/24 12:29 Respiratory Rate 18 07/31/24 12:29 Blood Pressure 146/65 H 07/31/24 12:29 Pulse Oximetry 98 07/31/24 12:29 Oxygen Delivery Room Air 07/31/24 12:29 Temperature 97.4 F L 07/31/24 14:55 Pulse Rate 86 07/31/24 16:02 Respiratory Rate 20 07/31/24 16:02 Blood Pressure 159/75 H 07/31/24 14:55 Pulse Oximetry 98 07/31/24 14:55 Oxygen Delivery Room Air 07/31/24 12:29 MDM - SOB/Dyspnea MDM Narrative Medical decision making narrative: This is a 79-year-old female who presents to the ED for cough, lower chest discomfort and feeling unwell. Vitals are normal. Exam is benign overall. She does have history of COPD this appears to be potentially a mild COPD flare. EKG shows sinus rhythm with no acute ischemia. Lab work shows mild leukocytosis of 11.5. 0 troponins are negative. D-dimer is negative. CMP is grossly normal. Urinalysis does show nitrite positive urine with 4+ bacteria and the culture is pending. Viral swabs are negative. Chest x-ray: IMPRESSION: Bilateral interstitial changes which may indicate fibrotic changes. Superimposed pneumonitis is not excluded. \ She was given DuoNeb, Solu-Medrol here for the COPD. She is feeling better on re-evaluation. No more chest discomfort. She was also given Rocephin for nitrite positive urine. Rx for Augmentin and doxycycline given. Pt will be discharged in stable condition. Return precautions given and supportive measures discussed. Pt is understanding and agreeable with plan for discharge and follow-up with PCP. Lab Data 07/31/24 15:49 07/31/24 15:49 Labs: Lab Results 07/31/24 07/31/24 07/31/24 Range/Units 15:49 15:55 16:56 WBC 11.4 H (4.5-10.0) K/mm3 RBC 4.18 L (4.2-5.4) M/mm3 Hgb 10.8 L (12.0-15.0) g/dL Hct 35.2 L (37.0-47.0) % MCV 84.2 (80-100) fl MCH 25.8 L (26-34) pg MCHC 30.7 L (32-36) g/dl RDW 15.9 H (11.5-14.5) % Plt Count 347 D (150-375) k/mm3 MPV 9.8 (7.4-10.4) fl Immature Gran % (Auto) 1.3 H (0-0.5) % Neut % (Auto) 62.9 (45.5-73.1) % Lymph % (Auto) 27.5 (18.3-44.2) % [place] % (Auto) 6.0 (2.6-8.5) % Eos % (Auto) 1.6 (0-4.4) % Baso % (Auto) 0.7 (0.2-1.2) % Lymph # (Auto) 3.14 (0.9-3.2) K/mm3 [place] # (Auto) 0.7 H (0.1-0.6) K/mm3 Eos # (Auto) 0.2 (0-0.3) K/mm3 Baso # (Auto) 0.1 (0.0-0.1) K/mm3 Abs Immat Gran (auto) 0.15 H (0.00-0.031) K/mm3 Absolute Neuts (auto) 7.2 H (1.3-6.7) K/mm3 Absolute Nucleated RBC 0.000 (0.0-0.012) K/mm3 Nucleated RBC % 0.0 (0.0-0.2) % PT 13.8 (11.1-14.7) Seconds INR 1.0 APTT 28.5 (22.3-36.8) Seconds D-Dimer 0.43 (<0.48) ug/mL Sodium 137 (137-145) mmol/L Potassium 3.7 (3.4-5.0) mmol/L Chloride 105 (98-107) mmol/L Carbon Dioxide 29 (22-30) mmol/L Anion Gap 3 L (4-12) mmol/L BUN 11 (7-17) mg/dL Creatinine 0.80 (0.7-1.0) mg/dL Estim Creat Clear Calc 52 ml/min Estimated GFR > 60 (59 - ) Glucose 86 (65-110) mg/dL Calcium 8.6 (8.4-10.2) mg/dL Total Bilirubin 0.7 (0.2-1.3) mg/dL AST 34 (14-36) U/L ALT 22 (6-35) U/L Alkaline Phosphatase 86 (38-126) U/L Troponin I < 0.012 (0.000-0.034) ng/mL NT-Pro-B Natriuret Pep 39 (19.9-100) pg/mL Total Protein 7.0 (6.3-8.2) g/dL Albumin 4.1 (3.5-5.1) g/dL Lipase 62 (23-300) U/L Urine Color Yellow (Yellow) Urine Appearance Cloudy H (Clear) Urine pH 6.5 (5.0-9.0) Ur Specific [place] 1.008 (1.001-1.035) Urine Protein Negative (Negative) mg/dL Urine Glucose (UA) Negative (Negative) mg/dL Urine Ketones Negative (Negative) mg/dL Ur Blood (Man) Negative (Negative) Urine Nitrate Positive H (Negative) Urine Bilirubin Negative (Negative) Urine Urobilinogen 1.0 (<2.0) mg/dL Leukocyte Esterase Rfl 2+ H (Negative) LOIS/UL Urine RBC 0-2 (0-2) /hpf Urine WBC 21-50 H (0-3) /hpf Ur Squamous Epith Cells Occasional (Few) /hpf Urine Bacteria 4+ H /hpf Urine Casts 0-2 Influenza A (RT-PCR) Negative (Negative) Influenza B (RT-PCR) Negative (Negative) RSV (RT-PCR) Negative (Negative) SARS-CoV-2 RNA (RT-PCR) Negative (Negative) 07/31/24 Range/Units 19:13 WBC (4.5-10.0) K/mm3 RBC (4.2-5.4) M/mm3 Hgb (12.0-15.0) g/dL Hct (37.0-47.0) % MCV (80-100) fl MCH (26-34) pg MCHC (32-36) g/dl RDW (11.5-14.5) % Plt Count (150-375) k/mm3 MPV (7.4-10.4) fl Immature Gran % (Auto) (0-0.5) % Neut % (Auto) (45.5-73.1) % Lymph % (Auto) (18.3-44.2) % [place] % (Auto) (2.6-8.5) % Eos % (Auto) (0-4.4) % Baso % (Auto) (0.2-1.2) % Lymph # (Auto) (0.9-3.2) K/mm3 [place] # (Auto) (0.1-0.6) K/mm3 Eos # (Auto) (0-0.3) K/mm3 Baso # (Auto) (0.0-0.1) K/mm3 Abs Immat Gran (auto) (0.00-0.031) K/mm3 Absolute Neuts (auto) (1.3-6.7) K/mm3 Absolute Nucleated RBC (0.0-0.012) K/mm3 Nucleated RBC % (0.0-0.2) % PT (11.1-14.7) Seconds INR APTT (22.3-36.8) Seconds D-Dimer (<0.48) ug/mL Sodium (137-145) mmol/L Potassium (3.4-5.0) mmol/L Chloride (98-107) mmol/L Carbon Dioxide (22-30) mmol/L Anion Gap (4-12) mmol/L BUN (7-17) mg/dL Creatinine (0.7-1.0) mg/dL Estim Creat Clear Calc ml/min Estimated GFR (59 - ) Glucose (65-110) mg/dL Calcium (8.4-10.2) mg/dL Total Bilirubin (0.2-1.3) mg/dL AST (14-36) U/L ALT (6-35) U/L Alkaline Phosphatase (38-126) U/L Troponin I < 0.012 (0.000-0.034) ng/mL NT-Pro-B Natriuret Pep (19.9-100) pg/mL Total Protein (6.3-8.2) g/dL Albumin (3.5-5.1) g/dL Lipase (23-300) U/L Urine Color (Yellow) Urine Appearance (Clear) Urine pH (5.0-9.0) Ur Specific [place] (1.001-1.035) Urine Protein (Negative) mg/dL Urine Glucose (UA) (Negative) mg/dL Urine Ketones (Negative) mg/dL Ur Blood (Man) (Negative) Urine Nitrate (Negative) Urine Bilirubin (Negative) Urine Urobilinogen (<2.0) mg/dL Leukocyte Esterase Rfl (Negative) LOIS/UL Urine RBC (0-2) /hpf Urine WBC (0-3) /hpf Ur Squamous Epith Cells (Few) /hpf Urine Bacteria /hpf Urine Casts Influenza A (RT-PCR) (Negative) Influenza B (RT-PCR) (Negative) RSV (RT-PCR) (Negative) SARS-CoV-2 RNA (RT-PCR) (Negative) ECG Data EKG #1: ECG completion date: 07/31/24 ECG completion time: 15:47 Prior ECG tracings: not available for review Interpretation: Sinus rhythm Rate 82 Normal QRS Normal QTC No acute ischemic findings EKG #2: ECG completion date: 07/31/24 ECG completion time: 19:14 Prior ECG tracings: available for review Interpretation: Sinus tachycardia Rate 105 Normal QRS Normal QTC Largely unchanged from previous ECG today Discharge Plan Discharge Clinical Impression: UTI (urinary tract infection), COPD exacerbation Patient Disposition: Home, Self-Care Condition: Stable Instructions: Antibiotic Form Additional Instructions: Your exam and imaging today do indicate UTI along with flare of COPD. Please take steroids as prescribed as well as antibiotics. If you have any new or worsening symptoms please return to the ER for further evaluation. Patient Language: Turkmen Prescriptions: New amoxicillin-pot clavulanate 875-125 mg tablet 1 tablet PO Q12H Qty: 14 0RF doxycycline hyclate 100 mg capsule 100 mg PO BID 7 Days Qty: 14 0RF No Action hydrochlorothiazide 50 mg tablet 50 mg PO DAILY levothyroxine 100 mcg tablet 112 mcg PO DAILY simvastatin 20 mg tablet 20 mg PO HS lisinopril 40 mg tablet 40 mg PO DAILY duloxetine 60 mg capsule,delayed release(DR/EC) 60 mg PO DAILY omeprazole 40 mg capsule,delayed release(DR/EC) 40 mg PO DAILY colesevelam 625 mg tablet 312.5 mg PO BID buspirone 15 mg tablet 15 mg PO QAM azithromycin 250 mg tablet 250 mg PO HS 3 Days Qty: 3 0RF cefdinir 300 mg capsule 300 mg PO Q12H 5 Days Qty: 10 0RF Follow-up/Referrals: Brandy,Brent Rivera MD [Primary Care Provider] - Time of Disposition: 18:38
--- NOTE | 2024-07-31 15:36 | ECG_ITS ---
Test Date: 2024-07-31 15:47:36 Measurements Intervals [place] Rate: 82 P: 57 NE: 177 QRS: -26 QRSD: 77 T: 42 QT: 385 QTc: 451 Interpretive Statements SINUS RHYTHM LOW QRS VOLTAGE IN PRECORDIAL LEADS [QRS DEFLECTION < 1.0 mV IN CHEST LEADS] POSSIBLE ANTERIOR MYOCARDIAL INFARCTION , PROBABLY OLD [30 ms Q WAVE IN V3/V4, OR R < 0.2 mV IN V4] INFERIOR MYOCARDIAL INFARCTION , PROBABLY OLD [40+ ms Q WAVE AND/OR ST/T ABNORMALITY IN II/aVF] ABNORMAL ECG Electronically Signed On 08-01-2024 08:49:43 SHEETER MACHINE OPERATOR by Terrell Goldstein M.D.
[2024-07-31] MEDS: IPRATROPIUM 0.5 MG/ALBUTEROL SULFATE 2.5 MG AMPUL.NEB 3 ML INHALATION (15:49)
[2024-07-31 15:50] VITALS: PULSE 88; RESP 20
[2024-07-31 15:56] LABS: Basophils Absolute Auto 0.1 K/mm3 (0.0-0.1); Basophils Percent Auto 0.7 % (0.2-1.2); Eosinophils Absolute Auto 0.2 K/mm3 (0-0.3); Eosinophils Percent Auto 1.6 % (0-4.4); Hematocrit 35.2 % (37.0-47.0); Hemoglobin 10.8 g/dL (12.0-15.0); Immature Granulocyte Absolute 0.15 K/mm3 (0.00-0.031); Immature Granulocyte Percent A 1.3 % (0-0.5); Lymphocytes Absolute Auto 3.14 K/mm3 (0.9-3.2); Lymphocytes Percent Auto 27.5 % (18.3-44.2); Mean Corpuscular HGB Conc 30.7 g/dl (32-36); Mean Corpuscular Hemoglobin 25.8 pg (26-34); Mean Corpuscular Volume 84.2 fl (80-100); Mean Platelet Volume 9.8 fl (7.4-10.4); Monocytes Absolute Auto 0.7 K/mm3 (0.1-0.6); Neutrophils Absolute Auto 7.2 K/mm3 (1.3-6.7); Neutrophils Percent Auto 62.9 % (45.5-73.1); Platelet Count Result 347 k/mm3 (150-375); Red Blood Count 4.18 M/mm3 (4.2-5.4); Red Cell Distribution Width 15.9 % (11.5-14.5); White Blood Count 11.4 K/mm3 (4.5-10.0)
[2024-07-31 16:02] VITALS: PULSE 86; RESP 20
[2024-07-31 16:05] LABS: Alanine Aminotransferase 22 U/L (6-35); Albumin Level 4.1 g/dL (3.5-5.1); Alkaline Phosphatase 86 U/L (38-126); Anion Gap 3 mmol/L (4-12); Aspartate Amino Transferase 34 U/L (14-36); Bilirubin,Total 0.7 mg/dL (0.2-1.3); Blood Urea Nitrogen 11 mg/dL (7-17); Calcium 8.6 mg/dL (8.4-10.2); Carbon Dioxide 29 mmol/L (22-30); Chloride 105 mmol/L (98-107); Estimated CRCL calculation 52 ml/min; Estimated Glomerular Filt Rate > 60; Glucose 86 mg/dL (65-110); Lipase 62 U/L (23-300); Potassium 3.7 mmol/L (3.4-5.0); Sodium 137 mmol/L (137-145)
[2024-07-31 16:08] LABS: Partial Thromboplastin Time 28.5 Seconds (22.3-36.8); Prothrombin Time 13.8 Seconds (11.1-14.7)
[2024-07-31 16:17] LABS: NT Pro B Type Natriuretic Pept 39 pg/mL (19.9-100); Troponin I < 0.012 ng/mL (0.000-0.034)
[2024-07-31 16:23] LABS: D Dimer 0.43 ug/mL (<0.48)
[2024-07-31 16:40] LABS: Influenza A QL RT-PCR Negative (Negative); Influenza B QL RT-PCR Negative (Negative); RSV RNA, RT-PCR Negative (Negative); SARS-CoV-2 RNA PCR Negative (Negative)
[2024-07-31 17:09] LABS: Add Urine Microscopic? YES; Appearance Urine Cloudy (Clear); Bacteria Urine 4+ /hpf; Bilirubin Urine Negative (Negative); Blood Urine Negative (Negative); Color Urine Yellow (Yellow); Glucose Urine UA Negative (Negative); Ketones Urine Negative (Negative); Leukocyte Esterase Ur 2+ LEU/UL (Negative); Nitrate Urine Positive (Negative); Non Pathogenic Casts 0-2; Protein Urine Negative (Negative); RBC Urine 0-2 /hpf (0-2); Specific Grav Ur 1.008 (1.001-1.035); Squamous Epithelial Cell Urine Occasional /hpf (Few); WBC Urine 21-50 /hpf (0-3); pH Urine 6.5 (5.0-9.0)
[2024-07-31] MEDS: methylPREDNISolone SOD SUCC 40 MG VIAL IV PUSH (17:11)
--- NOTE | 2024-07-31 19:04 | ECG_ITS ---
Test Date: 2024-07-31 19:14:46 Measurements Intervals [place] Rate: 105 P: 65 MT: 161 QRS: -17 QRSD: 78 T: 38 QT: 329 QTc: 435 Interpretive Statements SINUS TACHYCARDIA LOW QRS VOLTAGE IN PRECORDIAL LEADS [QRS DEFLECTION < 1.0 mV IN CHEST LEADS] INFERIOR MYOCARDIAL INFARCTION , PROBABLY OLD [40+ ms Q WAVE AND/OR ST/T ABNORMALITY IN II/aVF] ABNORMAL ECG Electronically Signed On 08-01-2024 08:57:21 BLACK POWDER GLAZING OPERATOR by Terrell Goldstein M.D.
[2024-07-31 19:46] LABS: Troponin I < 0.012 ng/mL (0.000-0.034)
[2024-07-31 20:15] VITALS: BP 154/74; PULSE 98; RESP 14; O2SAT 96
--- OUTSIDE RECORDS SUMMARY | 2024-08-07 17:47 | XMS_ITS | Continuity of Care Document ---
Author Organization [facility] Address [address], [place] [id number] Encounter [facility] Financial Number [id number] Date(s): 10/01/22 - 10/01/[address] [id number] Discharge Disposition: Home or Self Care Attending Physician: Doctor, Not On Staff Referring Physician: Doctor, Not On Staff Note * Event Display: [facility] * Event Display: [facility] * Event Display: [facility] MR Brain/Brainstem w/o Contrast Authored Date: * Event Display: [facility] MR Brain/Brainstem w/o Contrast Authored Date: [place], [place] [facility] Completed on: 10/01/2022 11:52 AM (CT) EXAMINATION: Magnetic resonance imaging (MRI) of the brain and brainstem without contrast HISTORY: Research study protocol TECHNIQUE: Multiplanar multi-weighted MRI of the brain and brainstem was performed without intravenous contrast using a study protocol. The examination was performed on a 3 T MRI. COMPARISON: 08/15/2022 FINDINGS: The scalp and calvarium are normal. The superior sagittal sinus demonstrates normal venous flow. The corpus callosum is normal in shape and signal intensity. The posterior fossa is unremarkable. The pituitary and sella are normal. The brainstem and craniocervical junction are unremarkable. Diffusion weighted images reveal no hyperintensities to suggest acute cerebral infarction. The susceptibility weighted sequences reveal no evidence of acute or chronic hemorrhage. There is diffuse cerebral volume loss with ex vacuo ventricular dilatation. There are extensive T2/FLAIR hyperintense foci within the deep and periventricular white matter are unchanged and likely related to chronic microvascular ischemic disease. The paranasal sinuses are normal. The visualized portions of the mastoids are unremarkable. The orbits appear normal. Normal flow voids are demonstrated in the carotid arteries and basilar artery. IMPRESSION: No acute process. No significant interval change. Stable parenchymal volume loss and extensive chronic small vessel disease. . Read by: Keith Thomas M.D. Reviewed and Electronically Signed by: Keith Thomas M.D.
--- OUTSIDE RECORDS SUMMARY | 2024-08-07 17:47 | XMS_ITS | Patient Health Record ---
Author Organization [facility] Address [address] [place], [place] [id number] Care Team Providers Care Seed Laboratory Assistant Name Role Phone Lizzie De La Cruz M.D. Primary Care Provider Kevin Albrecht Unavailable [phone] Migration, Provider Unavailable Unavailable Allergies Allergen (clinical drug ingredient) Drug/Non Drug Allergy documented on EMR Reaction Allergy Type Onset Date Status codeine Codeine Unknown Drug Allergy Active Reason For Referral No Information Medications Medication SIG (Take, Route, Frequency, Duration) Notes Start Date End Date Status BP MED ?NAME,DM MED ? 6 MG-120 MG 1 TAB(S) ORALLY Q12H *Please review for potential replacement for e-prescription and drug interaction check* Active Plaquenil 200 MG 1 tab(s) orally once a day Active NASONEX 50 MCG/INH 2 SPRAY(S) INTRANASALLY ONCE A DAY for 30 DAY(S) *Please review for potential replacement for e-prescription and drug interaction check* 12/20/2016 Active ASTELIN 137 MCG/INH 2 SPRAY(S) INTRANASALLY BID for 30 DAY(S) *Please review for potential replacement for e-prescription and drug interaction check* 01/15/2017 Active Synthroid 50 MCG 1 tab(s) orally once a day Active Encounters Encounter Location Date Provider Diagnosis [facility] [address] [place], [place] [id number] 07/17/2024 Provider Migration Otalgia, bilateral H92.03 Assessments Encounter Date Diagnosis (ICD Code) Assessment Notes Treatment Notes Treatment Clinical Notes Section Notes 07/17/2024 Otalgia, bilateral (ICD-10 - H92.03) Plan Of Treatment No Information Insurance Providers Payer Name Payer Address Payer Phone Subscriber Number Group Number Insured Name Patient Relationship to Insured Coverage Start Date Coverage End Date [employer] Medicare Advantage Complete HMO [address] [address] [place] [address] [id number] Ileana Panda Self - patient is the insured Medical (General) History Medical History History ICD Code Pertinent Medical History: E ye problems, History of Allergies, Ear problems, High blood pressure, Anxiety/Depression, Thyroid problems, on thyroid meds s/p thyroidectomy hx of arthritis sle Surgical History Surgery Date(Month/Year) thyroidectomy spinal fusion hyter/c section
--- OUTSIDE RECORDS SUMMARY | 2024-08-07 17:47 | XMS_ITS ---
Author Organization [facility] Address [address] [facility] [address] [place], [place] [id number] Care Team Providers Care Sample Color Maker Name Role Phone Lizzie De La Cruz M.D. Primary Care Provider Kevin Albrecht Unavailable [phone] Migration, Provider Unavailable Unavailable Allergies Allergen (clinical drug ingredient) Drug/Non Drug Allergy documented on EMR Reaction Allergy Type Onset Date Status codeine Codeine Unknown Drug Allergy Active REASON FOR VISIT [facility] To [facility] [place] Conversion Encounter Medications Medication SIG (Take, Route, Frequency, Duration) [...] Date Provider Diagnosis [facility] [address] [facility] [address] [place], [place] [id number] 07/17/2024 Provider Migration Otalgia, bilateral H92.03 Assessments Encounter Date Diagnosis (ICD Code) Assessment Notes Treatment Notes Treatment Clinical Notes Section Notes 07/17/2024 Otalgia, bilateral (ICD-10 - H92.03) Plan Of Treatment Medication Medication Name Sig Start Date Stop Date Notes ASTELIN 137 MCG/INH 2 SPRAY(S) INTRANASA LLY BID for 30 DAY(S) 01/15/2017 *Please review for potential replacement for e-prescription and drug interaction check* Progress Notes * Ileana PANDA : [birth year] (79 yo F)Acc No.[id number]:07/17/2024 Patient:?Ileana PANDA Provider:?Provider Migration :1945???Age:79 Y???Sex:Female D ate:07/17/2024 Address:[address] [place] [address] Pcp:Lizzie De La Cruz M.D. Subjective: * Chief Complaints: * ???[facility]. * Medical History:? * Medications:?Taking NASONEX 50 MCG/INH SPRAY 2 SPRAY(S) INTRANASALLY ONCE A DAY , Notes to Pharmacist: *Please review for potential replacement for e-prescription and drug interaction check*, Taking Synthroid 50 MCG Tablet 1 tab(s) orally once a day , Taking Plaquenil 200 MG Tablet 1 tab(s) orally once a day , Taking BP MED ?NAME,DM MED ? 6 MG-120 MG TABLET, EXTENDED RELEASE 1 TAB(S) ORALLY Q12H , Notes to Pharmacist: *Please review for potential replacement for e-prescription and drug interaction check* * Allergies:?Codeine. Objective: * Vitals:? * Physical Examination:? Assessment: * Assessment: 1.?Otalgia, bilateral - H92. 03??? Plan: * Treatment: * * Electronic signature of Prov ider Migration on 08/07/2024 at 05:47 PM WIND OPERATIONS MANAGER Sign off status: Pending * Provider:?Provider Migration Date:?07/17 Generated for Renita gross/Dianne/Corriesmitting on:?08/07/2024 05:47 PM WIND OPERATIONS MANAGER
--- OUTSIDE RECORDS SUMMARY | 2024-08-07 17:47 | XMS_ITS | Continuity of Care Document ---
Author Organization [facility] Address [address] [place], [place] [id number] Encounter [facility] Financial Number [id number] Date(s): 11/27/22 - 11/27/[address] [id number] Discharge Disposition: Home or Self Care Attending Physician: Doctor, Not On Staff Referring Physician: Doctor, Not On Staff Note * Event Display: [facility] * Event Display: [facility] * Event Display: [facility] MR Brain/Brainstem w/o Contrast Authored Date: * Event Display: [facility] MR Brain/Brainstem w/o Contrast Authored Date: [place], [place] [facility] Completed on: 11/27/2022 02:09 PM (CT) EXAM: MRI BRAIN/BRAIN STEM W/O CONTRAST HISTORY: Research study. TECHNICAL INFORMATION: MRI of the brain brainstem was performed in a 3.0 [facility] MR system without intravenous contrast using a noncontrast brain research study protocol. CONTRAST MATERIAL: None COMPARISON: October 01, 2022 FINDING: There are no areas of restricted diffusion to indicate an acute infarct. No extra axial fluid collection. No mass, mass effect, midline shift. White matter changes consistent with small vessel disease in the white matter both cerebral hemispheres and in the brainstem. Prominent perivascular spaces and/or old lacunar infarcts or combination of both in the basal ganglia and left cerebral peduncle. There is no evidence of Amyloid related imaging abnormality to include edema or hemorrhage. No evidence of a recent infarct, mass, or intracranial hemorrhage. IMPRESSION: Stable MR appearance of the brain. There are no areas of susceptibility artifact or effusions to indicate the presence of amyloid related imaging abnormality. . Read by: Demario Doran M.D. Reviewed and Electronically Signed by: Demario Doran M.D.
--- OUTSIDE RECORDS SUMMARY | 2024-08-07 17:47 | XMS_ITS | Continuity of Care Document ---
Author Organization [facility] Address [address] [place], [place] [id number] Encounter [facility] Financial Number [id number] Date(s): 05/25/22 - 05/25/[address] [id number] Discharge Disposition: Home or Self Care Attending Physician: Juhi Saini M.D. Referring Physician: Juhi Saini M.D.
--- OUTSIDE RECORDS SUMMARY | 2024-08-07 17:47 | XMS_ITS | Continuity of Care Document ---
Author Organization [facility] Address [address] [place], [place] [id number] Encounter [facility] Financial Number [id number] Date(s): 06/12/21 - 06/12/[address] [id number] Discharge Disposition: Home or Self Care Attending Physician: Doctor, Not On Staff Referring Physician: Doctor, Not On Staff
--- OUTSIDE RECORDS SUMMARY | 2024-08-07 17:47 | XMS_ITS | Continuity of Care Document ---
Author Organization [facility] Address [address] [place], [place] [id number] Encounter [facility] Financial Number [id number] Date(s): 08/15/22 - 08/15/[address] [id number] Discharge Disposition: Home or Self Care Attending Physician: Doctor, Not On Staff Referring Physician: Doctor, Not On Staff Note * Event Display: [facility] * Event Display: [facility] * Event Display: [facility] MR Brain/Brainstem w/o Contrast Authored Date: * Event Display: [facility] MR Brain/Brainstem w/o Contrast Authored Date: [place], [place] [facility] Completed on: 08/15/2022 11:59 AM (CT) EXAMINATION: Magnetic resonance imaging (MRI) of the brain and brainstem without contrast HISTORY: Study protocol TECHNIQUE: Multiplanar multi-weighted MRI of the brain and brainstem was performed without intravenous contrast using a study protocol. The examination was performed on a 3 T MRI. COMPARISON: 05/27/2022 FINDINGS: The scalp and calvarium are normal. [...] volume loss with ex vacuo ventricular dilatation. Scattered T2/FLAIR hyperintense foci within the deep and periventricular white matter are unchanged and likely related to chronic microvascular ischemic disease. The paranasal sinuses are normal. The visualized portions of the mastoids are unremarkable. The orbits appear normal. Normal flow voids are demonstrated in the carotid arteries and basilar artery. IMPRESSION: No significant interval change. . Read by: DR. ARI DODGE MD Reviewed and Electronically Signed by: DR. ARI DODGE MD
== END 2024-07-31 20:15 | disposition home or self-care (01) ==
PROVIDERS: Emergency Provider Physician Assistant; PCP Internal Medicine
DX: J44.1 Chronic obstructive pulmonary disease with (acute) exacerbation (principal); N39.0 Urinary tract infection, site not specified; Z20.822 Contact with and (suspected) exposure to COVID-19; I10 Essential (primary) hypertension; E89.0 Postprocedural hypothyroidism; G47.33 Obstructive sleep apnea (adult) (pediatric); Z86.73 Personal history of transient ischemic attack (TIA), and cerebral infarction without residual deficits; Z87.891 Personal history of nicotine dependence; Z90.710 Acquired absence of both cervix and uterus; Z90.49 Acquired absence of other specified parts of digestive tract; Z98.49 Cataract extraction status, unspecified eye; Z79.899 Other long term (current) drug therapy; R00.0 Tachycardia, unspecified; R94.31 Abnormal electrocardiogram [ECG] [EKG]
CPT/HCPCS: 36415; 71045; 80053; 81001; 83690; 83880; 84484; 85025; 85380; 85610; 85730; 87077; 87086; 87186; 87637; 93005; 94640; 96365; 96375; 99284; J0696; J2919